=== PATIENT | male | born 1985 | race Caucasian/White ===

== ENCOUNTER 2024-10-23 15:54 | Outpatient (CLI) | payer OTHER, SELFPAY ==
--- NOTE | 2024-10-23 16:15 | USCV_ITS ---
Nva Jansen Age: 39 Gender: M : 1985 Exam Date: 10/23/2024 16:05 Ordering Phys: Laury Orozco Technologist: R Exam Location[place] [facility] [place] Indication: rt leg swelling HISTORY: Lower extremity swelling-RT PROCEDURES: Venous duplex imaging was performed in only the right lower extremity. The following venous structures were evaluated: common femoral vein, profunda vein, proximal portion of the greater saphenous vein, superficial femoral vein, and the popliteal vein. In addition, the posterior tibial and peroneal trunk were evaluated. FINDINGS: Normal 2-D Doppler and augmentation and compressibility throughout the lower extremity venous structures. Additional imaging through the proximal calf veins also reveals no thrombus. Limited evaluation of the greater saphenous vein is patent with no thrombus. CONCLUSIONS No evidence of right lower extremity DVT. Hiren Mathews MD (Electronically Signed) Final Date: 24 October 2024 10:02 S
== END 2024-10-23 15:55 | disposition home or self-care (01) ==
LOC: RAD 15:56
PROVIDERS: Visit Provider Registered Nurse Neonatal Intensive Care
DX: R09.89 Other specified symptoms and signs involving the circulatory and respiratory systems (principal)
CPT/HCPCS: 93971